=== PATIENT | female | born 1990 | race Two or more races ===

== ENCOUNTER 2018-05-18 23:00 | Emergency (ER) | payer SELFPAY ==
[~2018-05-18] VITALS: Ht 177.8 cm; Wt 133.4 kg
[2018-05-18 23:04] VITALS: BP 151/98
[2018-05-18] MEDS ORDERED: DIPHENHYDRAMINE 25 MG CAPSULE PO ONE (23:30)
[2018-05-18] MEDS ORDERED: PROCHLORPERAZINE 5 MG/ML, 2ML IVPush ONE (23:30)
[2018-05-18] MEDS ORDERED: PROCHLORPERAZINE 5 MG/ML, 2ML ONE (23:30)
[2018-05-18] MEDS ORDERED: KETOROLAC 30 MG/1 ML IVPush ONE (23:30)
[2018-05-18] MEDS ORDERED: DIPHENHYDRAMINE 25 MG CAPSULE ONE (23:31)
[2018-05-18] MEDS ORDERED: KETOROLAC 30 MG/1 ML ONE (23:31)
--- NOTE | 2018-05-18 23:47 | NUR ---
PT TO ROOM FROM TRIAGE WITH C/O HEADACHE
[2018-05-18 23:59] LABS: BASOPHILS # (AUTO) 0.06 x10^3/uL (0-0.1); BASOPHILS % (AUTO) 1 % (0-1); EOSINOPHILS # (AUTO) 0.13 x10^3/uL (0-0.4); EOSINOPHILS % (AUTO) 1 % (1-7); LYMPHOCYTES # (AUTO) 2.74 x10^3/uL (1-3.4); LYMPHOCYTES % (AUTO) 29 % (22-44); MD NO; MEAN CORPUSCULAR HEMOGLOBIN 30.5 pg (27.0-34.8); MEAN CORPUSCULAR HGB CONC 35.7 g/dL (32.4-35.8); MEAN CORPUSCULAR VOLUME 85.5 fL (80-100); MEAN PLATELET VOLUME 8.7 fL (7.4-10.4); MONOCYTES # (AUTO) 0.56 x10^3/uL (0.2-0.8); MONOCYTES % (AUTO) 6 % (2-9); NEUTROPHILS # (AUTO) 5.83 x10^3/uL (1.8-6.8); NEUTROPHILS % (AUTO) 63 % (42-75); PLATELET COUNT 275 x10^3/uL (130-400); RED BLOOD COUNT 4.11 x10^6/uL (3.82-5.3); RED CELL DISTRIBUTION WIDTH 13.3 % (9.6-15.2)
[2018-05-19 00:10] LABS: ALBUMIN 3.2 g/dL (3.4-5.0); ANION GAP 8 mmol/L (5-15); CALCIUM 7.6 mg/dL (8.5-10.1); CHLORIDE 112 mmol/L (98-107); CREATININE 0.84 mg/dL (0.55-1.02)
--- NOTE | 2018-05-19 00:11 | NUR ---
PT STSTES FEELS BETTER
== END 2018-05-19 01:09 | disposition home or self-care (01) ==
LOC: ED 05-19 00:07
DX: R51 Headache (principal)
CPT/HCPCS: 36415; 80048; 82040; 84702; 85025; 96374; 96375; 99283; J0780; J1885; Q0163

== ENCOUNTER 2020-01-25 18:33 | Emergency (ER) | payer BC ==
[~2020-01-25] VITALS: Ht 177.8 cm; Wt 136.4 kg
[2020-01-25 18:38] VITALS: BP 144/80
[2020-01-25] MEDS ORDERED: HYDROcodone/APAP 5/325 TABLET ONE (19:05)
--- NOTE | 2020-01-25 19:08 | NUR ---
PT MEDICATED PER ORDERS. AMBULATED TO XR WITH [employer].
[2020-01-25] MEDS ORDERED: HYDROcodone/APAP 5/325 TABLET PO PRN (19:30)
--- NOTE | 2020-01-25 20:13 | NUR ---
ERP AT FOR RECHECK.
--- NOTE | 2020-01-25 20:28 | NUR ---
D/C INSTRUCTIONS & F/U APPT RV'WD WITH PT. PT AMBULATED OUT OF ED WITHOUT DIFFICULTY.
== END 2020-01-25 20:28 | disposition home or self-care (01) ==
LOC: ED 19:36
DX: M54.5 Low back pain (principal)
CPT/HCPCS: 72110; 99283

== ENCOUNTER 2020-01-26 15:23 | Emergency (ER) | payer BC ==
[~2020-01-26] VITALS: Ht 177.8 cm; Wt 138.2 kg
[2020-01-26 15:25] VITALS: BP 162/81
[2020-01-26] MEDS ORDERED: KETOROLAC 60 MG/2 ML ONE (15:52)
[2020-01-26] MEDS ORDERED: KETOROLAC 30 MG/1 ML IM ONE (16:00)
== END 2020-01-26 16:36 | disposition home or self-care (01) ==
LOC: ED 16:00
DX: M54.5 Low back pain (principal)
CPT/HCPCS: 96372; 99283; J1885